=== PATIENT | female | born 1955 | race Caucasian/White ===

== ENCOUNTER 2018-12-09 13:11 | Day surgery (SDC) | payer BC ==
[~2018-12-09 13:11] MED LIST: Lactated Ringers 1,000 ML IV SCH
--- NOTE | 2018-12-09 13:46 | PCM.PREANE ---
Preanesthetic Assessment - Anesthesia/Transfusion/Family Hx Anesthesia History: Prior Anesthesia Without Reaction Family History of Anesthesia Reaction: No Transfusion History: Prior Transfusion Without Reaction Intubation History: Unknown - Review of Systems General: No Symptoms Pulmonary: No Symptoms Cardiovascular: No Symptoms Gastrointestinal: Other (belching, bloating, pressure at the bottom of the sternum) Neurological: No Symptoms Other: Reports: None - Physical Assessment Height: 1.68 m Weight: 70.307 kg ASA Class: 2 Mental Status: Alert & Oriented x3 Airway Class: Mallampati = 2 Dentition: Reports: Normal Dentition (tiny chip front upper incisor) Thyro-Mental Finger Breadths: 3 Mouth Opening Finger Breadths: 2 ROM/Head Extension: Full Lungs: Clear to Auscultation, Normal Respiratory Effort Cardiovascular: Regular Rate, Regular Rhythm - Allergies Allergies/Adverse Reactions: Allergies Allergy/AdvReac Type Severity Reaction Status Date / Time rogelio Allergy sinus Verified 12/04/18 09:36 congestion - Blood Blood Available: No - Anesthesia Plan Pre-Op Medication Ordered: None - Acknowledgements Anesthesia Type Planned: MAC Pt an Appropriate Candidate for the Planned Anesthesia: Yes Alternatives and Risks of Anesthesia Discussed w Pt/Guardian: Yes Pt/Guardian Understands and Agrees with Anesthesia Plan: Yes PreAnesthesia Questionnaire Cardiovascular History: Reports: Heart Murmur, High Cholesterol, Hypertension Other Cardiovascular History: "slight murmur" Respiratory History: Reports: Other (See Below) Other Respiratory History: "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" Gastrointestinal History: Reports: Other (See Below) Other Gastrointestinal History: intermittent epigastric pain and bloating Genitourinary History: Reports: None 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: Hematologic History: Reports: Blood Transfusion(s) - Past Surgical History Head Surgeries/Procedures: Reports: None GI Surgical History: Reports: Colonoscopy (2013) Female Surgical History: Reports: Section, Hysterectomy, Salpingo- Oophorectomy - SUBSTANCE USE Smoking Status *Q: Never Smoker Recreational Drug Use History: No - HOME MEDS Home Medications: Home Meds Albuterol [Ventolin HFA] 1 - 2 puff INH ASDIRECTED PRN 12/04/18 [History] Aspirin [Adult Aspirin] 81 mg PO DAILY 12/04/18 [History] Lisinopril 10 mg PO DAILY 12/04/18 [History] Rosuvastatin Calcium 40 mg PO ASDIRECTED 12/04/18 [History] Zolpidem Tartrate 10 mg PO BEDTIME PRN 12/04/18 [History] hydroCHLOROthiazide [Hydrochlorothiazide] 25 mg PO DAILY 12/04/18 [History] - CURRENT (IN HOUSE) MEDS Current Meds: Current Medications Lactated Ringer's (Ringers, Lactated) 1,000 mls @ 125 mls/hr IV ASDIRECTED BRENDA
[2018-12-09] MEDS ORDERED: Lidocaine 2% 5 ML SDV ONE (14:03)
[2018-12-09] MEDS ORDERED: Propofol 200 MG/20 ML SDV ONE (14:04)
[2018-12-09] MEDS ORDERED: fentaNYL 100 MCG/2 ML SDV ONE (14:04)
--- NOTE | 2018-12-09 14:51 | PCM.OPNOTE ---
- General Post-Op/Procedure Note Date of Surgery/Procedure: 12/09/18 Operative Procedure(s): Esophagogastroduodenoscopy with gastric and esophageal biopsies Pre Op Diagnosis: Progressive dysphagia. Epigastric pain with abdominal bloating. Post-Op Diagnosis: Acute gastritis with superficial ulcerations. Hiatal hernia with esophagitis. Anesthesia Technique: MAC (ASA II) Primary Surgeon: Woodrow Mcdonald Condition: Good Free Text/Narrative:: DICTATION [id number] CPT CODE [id number]
--- NOTE | 2018-12-09 14:52 | PCM48HPAN ---
Post Anesthesia Note - EVALUATION WITHIN 48HRS OF ANESTHETIC Vital Signs in Normal Range: Yes Patient Participated in Evaluation: Yes Respiratory Function Stable: Yes Airway Patent: Yes Cardiovascular Function Stable: Yes Hydration Status Stable: Yes Pain Control Satisfactory: Yes Nausea and Vomiting Control Satisfactory: Yes Mental Status Recovered: Yes Resp Rate: 20 - COMMENTS/OBSERVATIONS Free Text/Narrative:: no anesthesia problems
[2018-12-09] MEDS ORDERED: Lactated Ringers 1,000 ML IV SCH (15:00)
--- NOTE | 2018-12-10 08:50 | OR ---
SURGEON: Woodrow Mcdonald M.D. DATE OF PROCEDURE: 12/09/2018 OPERATIONS PERFORMED: Esophagogastroduodenoscopy with gastric and esophageal biopsies. ANESTHESIA: MAC. ASA CLASSIFICATION: II. PREOPERATIVE DIAGNOSES: 1. Progressive dysphagia. 2. Epigastric pain with abdominal bloating. POSTOPERATIVE DIAGNOSES: 1. Acute gastritis with superficial ulcerations. 2. Hiatal hernia with esophagitis. DESCRIPTION OF PROCEDURE: The patient was taken to the endoscopy room and positioned on the endoscopy table in the supine position. Time-out was called for appropriate identification of the patient and procedure. Monitored anesthesia care was provided. The bite block was placed between the patient's teeth. The gastroscope was inserted through the bite block into the oropharynx and advanced without difficulty through the esophagus and stomach into the duodenum. Examination was now carried out in a retrograde fashion. Duodenum shows no acute inflammatory changes or ulcerations. Stomach does show a rather acute gastritis with what appeared to be superficial ulcerations. Antral biopsies were obtained to look for the presence of Helicobacter pylori. There was no acute large gastric ulceration or ulcer crater. The gastroscope was retroflexed to visualize the proximal stomach. The patient does have a hiatal hernia. In addition, the distal esophagus does show acute inflammatory changes and suggestion of columnarization of the esophageal mucosa. The esophagus itself demonstrates good contractility. No mid or proximal lesions were identified. The vocal cords were very briefly visualized and noted to move symmetrically. The oropharynx was thoroughly suctioned out prior to removing the scope. The patient tolerated the procedure well and was taken to recovery room in stable condition. CELENA / KYLE /[id number]
== END 2018-12-09 15:26 | disposition home or self-care (01) ==
LOC: MW.SDS 13:11
PROVIDERS: ATTEND Surgery
DX: K29.50 Unspecified chronic gastritis without bleeding (principal); K20.9 Esophagitis, unspecified; K44.9 Diaphragmatic hernia without obstruction or gangrene; K31.7 Polyp of stomach and duodenum; I10 Essential (primary) hypertension; E78.00 Pure hypercholesterolemia, unspecified; Z87.891 Personal history of nicotine dependence; Z79.82 Long term (current) use of aspirin; Z79.899 Other long term (current) drug therapy
CPT/HCPCS: 43239; J2704; J7120; J2001; J3010

== ENCOUNTER 2019-11-21 12:13 | Observation (INO) | payer BC ==
[2019-11-21] MEDS ORDERED: Labetalol 100 MG/20 ML MDV IVPUSH ONE (12:30)
[2019-11-21] MEDS ORDERED: hydrALAZINE 20 MG/ML SDV IVPUSH ONE (12:30)
[2019-11-21 13:00] LABS: BLOOD UREA NITROGEN,BUN 10 mg/dL (7.0-18.0); CARBON DIOXIDE,CO2 30.7 mmol/L (21.0-32.0); CHLORIDE,CL 97 mmol/L (98-107); GLUCOSE RANDOM 183 mg/dL (74-106); POTASSIUM,K 3.5 mmol/L (3.5-5.1); SODIUM,NA 136 mmol/L (136-145)
--- NOTE | 2019-11-21 13:41 | CR ---
Chest: Portable view of the chest was obtained. Comparison: No previous chest x-ray. Heart size and mediastinum are normal. Lungs are clear. Bony structures are grossly intact. Impression: 1. Nothing acute is appreciated on portable chest x-ray. Diagnostic code #1 This report was dictated in [place] Standard Time
[2019-11-21] MEDS ORDERED: Nitroglycerin 0.4 MG Tab.SL SL ONE (15:28)
--- NOTE | 2019-11-21 15:37 | EDM.PDOC ---
ED HPI GENERAL MEDICAL PROBLEM - General Chief Complaint: Chest Pain Stated Complaint: COUGH,CHEST TIGHTNESS Time Seen by Provider: 11/21/19 13:28 Source of Information: Reports: Patient History Limitations: Reports: No Limitations - History of Present Illness INITIAL COMMENTS - FREE TEXT/NARRATIVE: This 63 year old female is admitted to the ED with a chief complaint of chest pressure shortly after eating breakfast. She also complained of pain into her left arm with mild SOB with nausea. She states that as of 3:25PM the chest pressure feels better but is still there. She has a history of hypertension and high lipids. Both her mother and father had heart disease. Onset: Today Location: Reports: Chest Quality: Reports: Pressure (in center of chest) Severity: Moderate Associated Symptoms: Reports: Chest Pain, Diaphoresis, Nausea/Vomiting, Shortness of Breath chest Pain Score (Numeric/FACES): 3 - Related Data Allergies Allergy/AdvReac Type Severity Reaction Status Date / Time [place] Allergy sinus Verified 12/04/18 09:36 congestion Home Meds: Home Meds Albuterol [Ventolin HFA] 1 - 2 puff INH ASDIRECTED PRN 12/04/18 [History] Aspirin [Adult Aspirin] 81 mg PO DAILY 12/04/18 [History] Lisinopril 10 mg PO DAILY 12/04/18 [History] Rosuvastatin Calcium 40 mg PO ASDIRECTED 12/04/18 [History] Zolpidem Tartrate 10 mg PO BEDTIME PRN 12/04/18 [History] hydroCHLOROthiazide [Hydrochlorothiazide] 25 mg PO DAILY 12/04/18 [History] Sucralfate 1 gm PO QID 30 Days #120 tablet 12/09/18 [Rx] Past Medical History Cardiovascular History: Reports: Heart Murmur, High Cholesterol, Hypertension Other Cardiovascular History: "slight murmur" Respiratory History: Reports: Other (See Below) Other Respiratory History: "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" Gastrointestinal History: Reports: Other (See Below) Other Gastrointestinal History: intermittent epigastric pain and bloating Genitourinary History: Reports: None 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 Denies: Pleuritic Chest Pain , Sputum Cardiovascular: Reports: Chest Pain, Palpitations. Denies: Dyspnea on Exertion , Lightheadedness, Orthopnea Endocrine: Reports: No Symptoms GI/Abdominal: Reports: Nausea : Reports: No Symptoms Musculoskeletal: Reports: No Symptoms Skin: Reports: No Symptoms Neurological: Reports: No Symptoms Psychiatric: Reports: No Symptoms ED EXAM, GENERAL - Physical Exam Exam: See Below Exam Limited By: No Limitations General Appearance: Alert, WD/WN, No Apparent Distress Eye Exam: Bilateral Eye: EOMI, Normal Fundi, Normal Inspection, PERRL Ears: Normal External Exam, Normal Canal, Hearing Grossly Normal, Normal TMs Ear Exam: Bilateral Ear: Auricle Normal, Canal Normal, TM normal Nose: Normal Inspection, Normal Mucosa, No Blood Throat/Mouth: Normal Inspection, Normal Lips, Normal Teeth, Normal Gums, Normal Oropharynx, Normal Voice, No Airway Compromise Head: Atraumatic, Normocephalic Neck: Normal Inspection, Supple, Non-Tender, Full Range of Motion. No: Carotid Bruit, Thyromegaly Respiratory/Chest: No Respiratory Distress, Lungs Clear, Normal Breath Sounds. No: Crackles, Rales, Rhonchi, Wheezing Cardiovascular: No JVD, No Murmur, Tachycardia (rate of 131 beats per minute). No: No Edema, No Gallop Peripheral Pulses: 3+: Carotid (L), Carotid (R), Femoral (L), Femoral (R), Dorsalis Pedis (L), Dorsalis Pedis (R) GI/Abdominal: Normal Bowel Sounds, Soft, Non-Tender, No Organomegaly, No Distention, No Abnormal Bruit, No Mass Back Exam: Normal Inspection, Full Range of Motion. No: CVA Tenderness (L), CVA Tenderness (R) Extremities: Normal Inspection Neurological: Alert, Oriented, CN II-XII Intact, Normal Cognition, Normal Gait, Normal Reflexes, No Motor/Sensory Deficits Psychiatric: Normal Affect, Normal Mood Skin Exam: Warm, Dry, Intact, Normal Color, No Rash Course - Vital Signs Text/Narrative:: I discussed this case with Dr. Mays at 3:30PM. I also discussed this with the patient. She will be admitted to Obs/Tele. Last Recorded V/S: Last Vital Signs Temp 98.1 F 11/21/19 12:24 Pulse 104 H 11/21/19 13:53 Resp 16 11/21/19 13:53 BP 183/87 H 11/21/19 13:53 Pulse Ox 94 L 11/21/19 13:53 - Orders/Labs/Meds Orders: Active Orders 24 hr Category Date Time Status EKG Documentation Completion [RC] STAT Care 11/21/19 12:29 Active Labs: Laboratory Tests 11/21/19 11/21/19 11/21/19 Range/Units 12: 12:20 12:20 WBC 7.65 (4.0-11.0) K/uL RBC 4.60 (4.30-5.90) M/uL Hgb 16.0 (12.0-16.0) g/dL Hct 44.8 (36.0-46.0) % MCV 97.4 (80.0-98.0) fL MCH 34.8 H (27.0-32.0) pg MCHC 35.7 (31.0-37.0) g/dL RDW Std Deviation 42.4 (28.0-62.0) fl RDW Coeff of Oly 12 (11.0-15.0) % Plt Count 289 (150-400) K/uL MPV 9.60 (7.40-12.00) fL Neut % (Auto) 62.5 (48.0-80.0) % Lymph % (Auto) 24.8 (16.0-40.0) % Evans % (Auto) 11.0 (0.0-15.0) % Eos % (Auto) 1.2 (0.0-7.0) % Baso % (Auto) 0.5 (0.0-1.5) % Neut # (Auto) 4.8 (1.4-5.7) K/uL Lymph # (Auto) 1.9 (0.6-2.4) K/uL Evans # (Auto) 0.8 (0.0-0.8) K/uL Eos # (Auto) 0.1 (0.0-0.7) K/uL Baso # (Auto) 0.0 (0.0-0.1) K/uL Sodium 136 (136-145) mmol/L Potassium 3.5 (3.5-5.1) mmol/L Chloride 97 L (98-107) mmol/L Carbon Dioxide 30.7 (21.0-32.0) mmol/L BUN 10 (7.0-18.0) mg/dL Creatinine 0.7 (0.6-1.0) mg/dL Est Cr Clr Drug Dosing 77.01 mL/min Estimated GFR (MDRD) > 60.0 ml/min Glucose 183 H (74-106) mg/dL Calcium 9.2 (8.5-10.1) mg/dL Magnesium 1.9 (1.8-2.4) mg/dL Total Bilirubin 0.6 (0.2-1.0) mg/dL AST 112 H (15-37) IU/L ALT 114 H (14-63) IU/L Alkaline Phosphatase 94 (46-116) U/L Troponin I < 0.050 (0.000-0.056) ng/mL B-Natriuretic Peptide 5 (<100) PG/ML Total Protein 8.8 H (6.4-8.2) g/dL Albumin 4.1 (3.4-5.0) g/dL Globulin 4.7 H (2.6-4.0) g/dL Albumin/Globulin Ratio 0.9 (0.9-1.6) 11/21/19 Range/Units 14:34 WBC (4.0-11.0) K/uL RBC (4.30-5.90) M/uL Hgb (12.0-16.0) g/dL Hct (36.0-46.0) % MCV (80.0-98.0) fL MCH (27.0-32.0) pg MCHC (31.0-37.0) g/dL RDW Std Deviation (28.0-62.0) fl RDW Coeff of Oly (11.0-15.0) % Plt Count (150-400) K/uL MPV (7.40-12.00) fL Neut % (Auto) (48.0-80.0) % Lymph % (Auto) (16.0-40.0) % Evans % (Auto) (0.0-15.0) % Eos % (Auto) (0.0-7.0) % Baso % (Auto) (0.0-1.5) % Neut # (Auto) (1.4-5.7) K/uL Lymph # (Auto) (0.6-2.4) K/uL Evans # (Auto) (0.0-0.8) K/uL Eos # (Auto) (0.0-0.7) K/uL Baso # (Auto) (0.0-0.1) K/uL Sodium (136-145) mmol/L Potassium (3.5-5.1) mmol/L Chloride (98-107) mmol/L Carbon Dioxide (21.0-32.0) mmol/L BUN (7.0-18.0) mg/dL Creatinine (0.6-1.0) mg/dL Est Cr Clr Drug Dosing mL/min Estimated GFR (MDRD) ml/min Glucose (74-106) mg/dL Calcium (8.5-10.1) mg/dL Magnesium (1.8-2.4) mg/dL Total Bilirubin (0.2-1.0) mg/dL AST (15-37) IU/L ALT (14-63) IU/L Alkaline Phosphatase (46-116) U/L Troponin I < 0.050 (0.000-0.056) ng/mL B-Natriuretic Peptide (<100) PG/ML Total Protein (6.4-8.2) g/dL Albumin (3.4-5.0) g/dL Globulin (2.6-4.0) g/dL Albumin/Globulin Ratio (0.9-1.6) Meds: Medications Discontinued Medications Generic Name Dose Route Start Last Admin Trade Name Freq PRN Reason Stop Dose Admin Hydralazine HCl 10 mg 11/21/19 12:30 11/21/19 12:37 Apresoline IVPUSH 11/21/19 12:31 10 mg ONETIME ONE Administration Labetalol HCl 20 mg 11/21/19 12:30 11/21/19 12:37 Normodyne IVPUSH 11/21/19 12:31 20 mg ONETIME ONE Administration Protocol Departure - Departure Time of Disposition: 15:50 Disposition: Refer to Observation Condition: Fair Clinical Impression: Hypertension, malignant Chest pain due to myocardial ischemia Qualifiers: Ischemic chest pain type: stable angina pectoris Qualified Code(s): I20.8 - Other forms of angina pectoris Sepsis Event Note - Evaluation Sepsis Screening Result: No Definite Risk - Focused Exam Vital Signs: Vital Signs Temp Pulse Resp BP Pulse Ox 11/21/19 13:53 104 H 16 183/87 H 94 L 11/21/19 13:09 106 H 16 152/85 H 97 11/21/19 12:41 121 H 16 187/98 H 97 11/21/19 12:24 98.1 F 141 H 20 219/123 H 96 Date Exam was Performed: 11/21/19 Time Exam was Performed: 15:28 - My Orders Last 24 Hours: My Active Orders 11/21/19 12:29 EKG Documentation Completion [RC] STAT - Assessment/Plan Last 24 Hours: My Active Orders 11/21/19 12:29 EKG Documentation Completion [RC] STAT
[2019-11-21] MEDS ORDERED: Acetaminophen 500 MG Tab PO ONE (15:39)
[2019-11-21] MEDS ORDERED: Acetaminophen 325 MG Tab PO PRN (16:41)
[2019-11-21] MEDS ORDERED: Albuterol/Ipratropium 3.0-0.5 MG/3 ML Neb Soln NEB PRN (16:41)
[2019-11-21] MEDS ORDERED: Labetalol 100 MG/20 ML MDV IVPUSH PRN (16:57)
[2019-11-21] MEDS ORDERED: Hydrochlorothiazide 25 MG Tab PO SCH (17:00)
[2019-11-21] MEDS: Sucralfate 1 GM Tab PO SCH (17:22)
[2019-11-21] MEDS: Lisinopril 10 MG Tab PO SCH (17:22)
--- NOTE | 2019-11-21 19:48 | PCM.HP.2 ---
H&P History of Present Illness - General Date of Service: 11/21/19 Admit Problem/Dx: Admission Diagnosis/Problem Admission Diagnosis/Problem Hypertensive urgency - History of Present Illness Initial Comments - Free Text/Narative: This 63 year old female with PMH of HTN, HLD who comes in for evaluation of chest pressure that started earlier this AM after she had her breakfast and was lying down. Patient also c/o pain in her left arm, mild SOB associated with some Nausea, and dizziness. When she got to the ER her chest pressure had mostly resolved. Family history is significant cardiac disease. In the ER patient was found to have elevated BP in ER with high HR. Patient received labetalol and hydrazine for BP control. REINA improved. EKG didn't show any acute ST,T wave changes, Troponin 1st 2 sets in ER were negative. Patient does have elevated LFTs, patient is being admitted for management of Hypertensive urgency. States she has been feeling flu like symptoms last 1 week. Patient states that her BP has been uncontrolled last few weeks (SBP>170), and hasbeen trying to manage at home with her oral antihypertensive meds. Today she was at her daughter place so family insisted to take her to ER. chest Pain Score (Numeric/FACES): 3 - Related Data Allergies/Adverse Reactions: Allergies Allergy/AdvReac Type Severity Reaction Status Date / Time [email or web address] Allergy sinus Verified 11/21/19 16:41 congestion Home Medications: Home Meds Albuterol [Ventolin HFA] 1 - 2 puff INH ASDIRECTED PRN 12/04/18 [History] Aspirin [Adult Aspirin] 81 mg PO DAILY 12/04/18 [History] Lisinopril 20 mg PO DAILY 12/04/18 [History] Rosuvastatin Calcium 40 mg PO ASDIRECTED 12/04/18 [History] hydroCHLOROthiazide [Hydrochlorothiazide] 25 mg PO BEDTIME 12/04/18 [History] Sucralfate 1 gm PO QID 30 Days #120 tablet 12/09/18 [Rx] Zolpidem Tartrate [Ambien] 10 mg PO BEDTIME 11/21/19 [History] lisinopriL [Prinivil] 20 mg PO DAILY 30 Days #30 tablet 11/22/19 [Rx] Past Medical History HEENT History: Reports: None Cardiovascular History: Reports: Heart Murmur, High Cholesterol, Hypertension Other Cardiovascular History: "slight murmur" Respiratory History: Reports: Other (See Below) Other Respiratory History: "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" Gastrointestinal History: Reports: Other (See Below) Other Gastrointestinal History: intermittent epigastric pain and bloating Genitourinary History: Reports: None [employer] History: Reports: Hematologic History: Reports: Blood Transfusion(s) - Infectious Disease History Infectious Disease History: Reports: Chicken Pox - Past Surgical History Head Surgeries/Procedures: Reports: None GI Surgical History: Reports: Colonoscopy Female Surgical History: Reports: Section, Hysterectomy, Salpingo- Oophorectomy Social & Family History - Family History Cardiac: Reports: CAD, VA, Stent OBGYN: Reports: Neurological: Reports: CVA, TIA Psychiatric: Reports: Depression - Tobacco Use Smoking Status *Q: Never Smoker Second Hand Smoke Exposure: No - Caffeine Use Caffeine Use: Reports: Tea - Recreational Drug Use Recreational Drug Use: No H&P Review of Systems - Review of Systems: Review Of Systems: See Below General: Denies: Fever, Chills, Malaise Pulmonary: Denies: Shortness of Breath, Wheezing, Pleuritic Chest Pain, Cough Cardiovascular: Reports: Chest Pain. Denies: Palpitations, Dyspnea on Exertion , Orthopnea Gastrointestinal: Reports: Nausea. Denies: Abdominal Pain, Anorexia, Bloody Stool, Decreased Appetite Genitourinary: Denies: Frequency, Burning Musculoskeletal: Reports: Arm Pain. Denies: Neck Pain, Shoulder Pain, Back Pain , Hand Pain, Leg Pain Skin: Denies: Cyanosis, Jaundice, Mottled Psychiatric: Reports: Anxiety. Denies: Confusion Exam - Exam Exam: See Below - Vital Signs Vital Signs: Last Vital Signs Temp 36.8 C 11/21/19 19:15 Pulse 106 H 11/21/19 19:15 Resp 20 11/21/19 19:15 BP 179/87 H 11/21/19 19:15 Pulse Ox 96 11/21/19 19:15 Weight: 72.167 kg - Exam General: Alert, Oriented Neck: Supple, Trachea Midline Lungs: Clear to Auscultation, Normal Respiratory Effort Cardiovascular: Regular Rate, Normal S1, Normal S2, Tachycardia GI/Abdominal Exam: Normal Bowel Sounds, Soft, Non-Tender - Patient Data Lab Results Last 24 hrs: Laboratory Results - last 24 hr 11/21/19 11/21/19 11/21/19 Range/Units 12:20 12:20 12:20 WBC 7.65 (4.0-11.0) K/uL RBC 4.60 (4.30-5.90) M/uL Hgb 16.0 (12.0-16.0) g/dL Hct 44.8 (36.0-46.0) % MCV 97.4 (80.0-98.0) fL MCH 34.8 H (27.0-32.0) pg MCHC 35.7 (31.0-37.0) g/dL RDW Std Deviation 42.4 (28.0-62.0) fl RDW Coeff of Oly 12 (11.0-15.0) % Plt Count 289 (150-400) K/uL MPV 9.60 (7.40-12.00) fL Neut % (Auto) 62.5 (48.0-80.0) % Lymph % (Auto) 24.8 (16.0-40.0) % Becker % (Auto) 11.0 (0.0-15.0) % Eos % (Auto) 1.2 (0.0-7.0) % Baso % (Auto) 0.5 (0.0-1.5) % Neut # (Auto) 4.8 (1.4-5.7) K/uL Lymph # (Auto) 1.9 (0.6-2.4) K/uL Becker # (Auto) 0.8 (0.0-0.8) K/uL Eos # (Auto) 0.1 (0.0-0.7) K/uL Baso # (Auto) 0.0 (0.0-0.1) K/uL Sodium 136 (136-145) mmol/L Potassium 3.5 (3.5-5.1) mmol/L Chloride 97 L (98-107) mmol/L Carbon Dioxide 30.7 (21.0-32.0) mmol/L BUN 10 (7.0-18.0) mg/dL Creatinine 0.7 (0.6-1.0) mg/dL Est Cr Clr Drug Dosing 77.01 mL/min Estimated GFR (MDRD) > 60.0 ml/min Glucose 183 H (74-106) mg/dL Calcium 9.2 (8.5-10.1) mg/dL Magnesium 1.9 (1.8-2.4) mg/dL Total Bilirubin 0.6 (0.2-1.0) mg/dL AST 112 H (15-37) IU/L ALT 114 H (14-63) IU/L Alkaline Phosphatase 94 (46-116) U/L Troponin I < 0.050 (0.000-0.056) ng/mL B-Natriuretic Peptide 5 (<100) PG/ML Total Protein 8.8 H (6.4-8.2) g/dL Albumin 4.1 (3.4-5.0) g/dL Globulin 4.7 H (2.6-4.0) g/dL Albumin/Globulin Ratio 0.9 (0.9-1.6) 11/21/19 11/21/19 Range/Units 14:34 17:35 WBC (4.0-11.0) K/uL RBC (4.30-5.90) M/uL Hgb (12.0-16.0) g/dL Hct (36.0-46.0) % MCV (80.0-98.0) fL MCH (27.0-32.0) pg MCHC (31.0-37.0) g/dL RDW Std Deviation (28.0-62.0) fl RDW Coeff of Oly (11.0-15.0) % Plt Count (150-400) K/uL MPV (7.40-12.00) fL Neut % (Auto) (48.0-80.0) % Lymph % (Auto) (16.0-40.0) % Becker % (Auto) (0.0-15.0) % Eos % (Auto) (0.0-7.0) % Baso % (Auto) (0.0-1.5) % Neut # (Auto) (1.4-5.7) K/uL Lymph # (Auto) (0.6-2.4) K/uL Becker # (Auto) (0.0-0.8) K/uL Eos # (Auto) (0.0-0.7) K/uL Baso # (Auto) (0.0-0.1) K/uL Sodium (136-145) mmol/L Potassium (3.5-5.1) mmol/L Chloride (98-107) mmol/L Carbon Dioxide (21.0-32.0) mmol/L BUN (7.0-18.0) mg/dL Creatinine (0.6-1.0) mg/dL Est Cr Clr Drug Dosing mL/min Estimated GFR (MDRD) ml/min Glucose (74-106) mg/dL Calcium (8.5-10.1) mg/dL Magnesium (1.8-2.4) mg/dL Total Bilirubin (0.2-1.0) mg/dL AST (15-37) IU/L ALT (14-63) IU/L Alkaline Phosphatase (46-116) U/L Troponin I < 0.050 < 0.050 (0.000-0.056) ng/mL B-Natriuretic Peptide (<100) PG/ML Total Protein (6.4-8.2) g/dL Albumin (3.4-5.0) g/dL Globulin (2.6-4.0) g/dL Albumin/Globulin Ratio (0.9-1.6) Result Diagrams: 11/22/19 05:55 11/22/19 05:55 Sepsis Event Note - Evaluation Sepsis Screening Result: No Definite Risk - Focused Exam Vital Signs: Vital Signs Temp Pulse Resp BP BP Pulse Ox 11/21/19 19:15 36.8 C 106 H 20 179/87 H 96 11/21/19 17:22 170/87 H 11/21/19 16:41 36.2 C 106 H 16 170/87 H 97 11/21/19 16:09 104 H 16 144/97 H 94 L 11/21/19 15:44 116 H 16 144/97 H 96 11/21/19 15:37 167/94 H 11/21/19 13:53 104 H 16 183/87 H 94 L 11/21/19 13:09 106 H 16 152/85 H 97 11/21/19 12:41 121 H 16 187/98 H 97 11/21/19 12:24 36.7 C 141 H 20 219/123 H 96 Date Exam was Performed: 11/22/19 Time Exam was Performed: 20:56 - Problem List (1) Hypertensive urgency SNOMED Code(s): 909390062 ICD Code: I16.0 - HYPERTENSIVE URGENCY Status: Acute (2) HLD (hyperlipidemia) SNOMED Code(s): 71124396 ICD Code: E78.5 - HYPERLIPIDEMIA, UNSPECIFIED Status: Acute (3) Family history of heart disease SNOMED Code(s): 358790254 ICD Code: Z82.49 - FAMILY HX OF ISCHEM HEART DIS AND OTH DIS OF THE CIRC SYS Status: Acute Problem List Initiated/Reviewed/Updated: Yes Orders Last 24hrs: Active Orders 24 hr Category Date Time Status Admission Status [Patient Status] [ADT] Stat ADT 11/21/19 15:40 Active Ambulate [RC] ASDIRECTED Care 11/21/19 16:41 Active Antiembolic Devices [RC] PER UNIT ROUTINE Care 11/21/19 16:46 Active Oxygen Therapy [RC] PRN Care 11/21/19 16:41 Active Pulse Oximetry [RC] PRN Care 11/21/19 16:43 Active RT Aerosol Therapy [RC] ASDIRECTED Care 11/21/19 16:46 Active Telemetry Monitoring [Cardiac Monitoring] [RC] . Care 11/21/19 15:50 Active DIRECTED VTE/DVT Education [RC] PER UNIT ROUTINE Care 11/21/19 16:41 Active Vital Signs [RC] Q4H Care 11/21/19 16:41 Active Heart Healthy Diet [DIET] Diet 11/21/19 Dinner Active Albuterol/Ipratropium [DuoNeb 3.0-0.5 MG/3 ML] Med 11/21/19 16:41 Active 3 ml NEB Q4HRRT PRN Aspirin [Halfprin] Med 11/22/19 09:00 Active 81 mg PO DAILY Labetalol [Normodyne] Med 11/21/19 16:57 Active 20 mg IVPUSH Q4H PRN Rosuvastatin Calcium [Rosuvastatin Calcium] Med 11/21/19 17:00 Ordered 40 mg PO ASDIRECTED Sucralfate [Carafate] Med 11/21/19 18:00 Active 1 gm PO QID lisinopriL [Prinivil] Med 11/21/19 17:00 Active 10 mg PO DAILY Sequential Compression Device [OM.PC] Per Unit Routine Oth 11/21/19 16:44 Ordered Medication Orders Albuterol/Ipratropium (Duoneb 3.0-0.5 Mg/3 Ml) 3 ml NEB Q4HRRT PRN PRN Reason: Shortness Of Breath/wheezing Aspirin (Halfprin) 81 mg PO DAILY [facility] Labetalol HCl (Normodyne) 20 mg IVPUSH Q4H PRN; Protocol PRN Reason: Hypertension Last Admin: 11/21/19 19:35 Dose: 20 mg Lisinopril (Prinivil) 10 mg PO DAILY [facility] Last Admin: 11/21/19 17:22 Dose: 10 mg Non-Formulary Medication (Rosuvastatin Calcium [Rosuvastatin Calcium]) 40 mg PO ASDIRECTED [facility] Sucralfate (Carafate) 1 gm PO QID [facility] Last Admin: 11/21/19 17:22 Dose: 1 gm Assessment/Plan Comment:: A/P: 63 y/o F is being admitted for management of uncontrolled HTN, anxiety driven vs non-compliance? troponin 1st 2 sets neagtive, f/u on 3rd set, EKG unremarkable Cont home meds for BP control(med-rec needs to be done in AM) Labetalol 10mg IV Q4 for HTN cont ASA, statin Repeat LFTs in AM, transaminitis could be secondary to uncontrolled HTN Check lipid profile, TSH, HbA1c cont to monitor closely
[2019-11-21] MEDS ORDERED: ALPRAZolam 0.5 MG Tab PO ONE (20:14)
[2019-11-21 20:41] LABS: HEMOGLOBIN A1C 6.4 % (4.5-6.2)
[2019-11-22] MEDS: Sucralfate 1 GM Tab PO SCH ×2 (00:50→06:10)
[2019-11-22 06:48] LABS: BLOOD UREA NITROGEN,BUN 10 mg/dL (7.0-18.0); CARBON DIOXIDE,CO2 28.9 mmol/L (21.0-32.0); CHLORIDE,CL 100 mmol/L (98-107); GLUCOSE RANDOM 133 mg/dL (74-106); POTASSIUM,K 3.5 mmol/L (3.5-5.1); SODIUM,NA 136 mmol/L (136-145)
[2019-11-22] MEDS: Lisinopril 10 MG Tab PO SCH (08:41)
--- NOTE | 2019-11-22 08:54 | PCM.PN ---
- General Info Date of Service: 11/22/19 Subjective Update: The patient is a 63 year old female admitted for chest pain and HTN emergency. Patient still having intermittent "chest episodes" not really pain but doesn't feel right. BP still elevated 160s/80s. Required prn labetelol last night. Denies shortness of breath or abdominal pain. Eating, drinking, going to the bathroom without issue. Reports she just feels wiped out. - Review of Systems General: Reports: No Symptoms HEENT: Reports: No Symptoms Pulmonary: Reports: No Symptoms Cardiovascular: Reports: Chest Pain Gastrointestinal: Reports: No Symptoms Genitourinary: Reports: No Symptoms Musculoskeletal: Reports: No Symptoms Skin: Reports: No Symptoms Neurological: Reports: No Symptoms Psychiatric: Reports: No Symptoms - Patient Data Vitals - Most Recent: Last Vital Signs Temp 97.7 F 11/22/19 07:00 Pulse 90 11/22/19 07:00 Resp 20 11/22/19 07:00 BP 169/93 H 11/22/19 07:00 Pulse Ox 96 11/22/19 07:00 Weight - Most Recent: 72.167 kg I&O - Last 24 Hours: Intake & Output 11/21/19 11/22/19 11/22/19 22:59 06:59 14:59 Intake Total 500 Output Total 650 Balance -150 Lab Results Last 24 Hours: Laboratory Results - last 24 hr 11/21/19 11/21/19 11/21/19 Range/Units 12:20 12:20 12:20 WBC 7.65 (4.0-11.0) K/uL RBC 4.60 (4.30-5.90) M/uL Hgb 16.0 (12.0-16.0) g/dL Hct 44.8 (36.0-46.0) % MCV 97.4 (80.0-98.0) fL MCH 34.8 H (27.0-32.0) pg MCHC 35.7 (31.0-37.0) g/dL RDW Std Deviation 42.4 (28.0-62.0) fl RDW Coeff of Oly 12 (11.0-15.0) % Plt Count 289 (150-400) K/uL MPV 9.60 (7.40-12.00) fL Neut % (Auto) 62.5 (48.0-80.0) % Lymph % (Auto) 24.8 (16.0-40.0) % Pitt % (Auto) 11.0 (0.0-15.0) % Eos % (Auto) 1.2 (0.0-7.0) % Baso % (Auto) 0.5 (0.0-1.5) % Neut # (Auto) 4.8 (1.4-5.7) K/uL Lymph # (Auto) 1.9 (0.6-2.4) K/uL Pitt # (Auto) 0.8 (0.0-0.8) K/uL Eos # (Auto) 0.1 (0.0-0.7) K/uL Baso # (Auto) 0.0 (0.0-0.1) K/uL Nucleated RBC % /100WBC Nucleated RBCs # K/uL Sodium 136 (136-145) mmol/L Potassium 3.5 (3.5-5.1) mmol/L Chloride 97 L (98-107) mmol/L Carbon Dioxide 30.7 (21.0-32.0) mmol/L BUN 10 (7.0-18.0) mg/dL Creatinine 0.7 (0.6-1.0) mg/dL Est Cr Clr Drug Dosing 77.01 mL/min Estimated GFR (MDRD) > 60.0 ml/min Glucose 183 H (74-106) mg/dL Hemoglobin A1c (4.5-6.2) % Calcium 9.2 (8.5-10.1) mg/dL Phosphorus (2.6-4.7) mg/dL Magnesium 1.9 (1.8-2.4) mg/dL Total Bilirubin 0.6 (0.2-1.0) mg/dL AST 112 H (15-37) IU/L ALT 114 H (14-63) IU/L Alkaline Phosphatase 94 (46-116) U/L Troponin I < 0.050 (0.000-0.056) ng/mL B-Natriuretic Peptide 5 (<100) PG/ML Total Protein 8.8 H (6.4-8.2) g/dL Albumin 4.1 (3.4-5.0) g/dL Globulin 4.7 H (2.6-4.0) g/dL Albumin/Globulin Ratio 0.9 (0.9-1.6) TSH 3rd Generation (0.36-3.74) uIU/mL 11/21/19 11/21/19 11/21/19 Range/Units 14:34 14:34 17:35 WBC (4.0-11.0) K/uL RBC (4.30-5.90) M/uL Hgb (12.0-16.0) g/dL Hct (36.0-46.0) % MCV (80.0-98.0) fL MCH (27.0-32.0) pg MCHC (31.0-37.0) g/dL RDW Std Deviation (28.0-62.0) fl RDW Coeff of Oly (11.0-15.0) % Plt Count (150-400) K/uL MPV (7.40-12.00) fL Neut % (Auto) (48.0-80.0) % Lymph % (Auto) (16.0-40.0) % Pitt % (Auto) (0.0-15.0) % Eos % (Auto) (0.0-7.0) % Baso % (Auto) (0.0-1.5) % Neut # (Auto) (1.4-5.7) K/uL Lymph # (Auto) (0.6-2.4) K/uL Pitt # (Auto) (0.0-0.8) K/uL Eos # (Auto) (0.0-0.7) K/uL Baso # (Auto) (0.0-0.1) K/uL Nucleated RBC % /100WBC Nucleated RBCs # K/uL Sodium (136-145) mmol/L Potassium (3.5-5.1) mmol/L Chloride (98-107) mmol/L Carbon Dioxide (21.0-32.0) mmol/L BUN (7.0-18.0) mg/dL Creatinine (0.6-1.0) mg/dL Est Cr Clr Drug Dosing mL/min Estimated GFR (MDRD) ml/min Glucose (74-106) mg/dL Hemoglobin A1c 6.4 H (4.5-6.2) % Calcium (8.5-10.1) mg/dL Phosphorus (2.6-4.7) mg/dL Magnesium (1.8-2.4) mg/dL Total Bilirubin (0.2-1.0) mg/dL AST (15-37) IU/L ALT (14-63) IU/L Alkaline Phosphatase (46-116) U/L Troponin I < 0.050 < 0.050 (0.000-0.056) ng/mL B-Natriuretic Peptide (<100) PG/ML Total Protein (6.4-8.2) g/dL Albumin (3.4-5.0) g/dL Globulin (2.6-4.0) g/dL Albumin/Globulin Ratio (0.9-1.6) TSH 3rd Generation (0.36-3.74) uIU/mL 11/21/19 11/22/19 11/22/19 Range/Units 17:35 05:55 05:55 WBC 8.35 (4.0-11.0) K/uL RBC 4.12 L (4.30-5.90) M/uL Hgb 13.9 (12.0-16.0) g/dL Hct 41.0 (36.0-46.0) % MCV 99.5 H (80.0-98.0) fL MCH 33.7 H (27.0-32.0) pg MCHC 33.9 (31.0-37.0) g/dL RDW Std Deviation 47.4 (28.0-62.0) fl RDW Coeff of Oly 13 (11.0-15.0) % Plt Count 249 (150-400) K/uL MPV 9.70 (7.40-12.00) fL Neut % (Auto) 65.2 (48.0-80.0) % Lymph % (Auto) 20.5 (16.0-40.0) % Pitt % (Auto) 12.1 (0.0-15.0) % Eos % (Auto) 1.6 (0.0-7.0) % Baso % (Auto) 0.6 (0.0-1.5) % Neut # (Auto) 5.5 (1.4-5.7) K/uL Lymph # (Auto) 1.7 (0.6-2.4) K/uL Pitt # (Auto) 1.0 H (0.0-0.8) K/uL Eos # (Auto) 0.1 (0.0-0.7) K/uL Baso # (Auto) 0.1 (0.0-0.1) K/uL Nucleated RBC % 0.0 /100WBC Nucleated RBCs # 0 K/uL Sodium 136 (136-145) mmol/L Potassium 3.5 (3.5-5.1) mmol/L Chloride 100 (98-107) mmol/L Carbon Dioxide 28.9 (21.0-32.0) mmol/L BUN 10 (7.0-18.0) mg/dL Creatinine 0.7 (0.6-1.0) mg/dL Est Cr Clr Drug Dosing 77.01 mL/min Estimated GFR (MDRD) > 60.0 ml/min Glucose 133 H (74-106) mg/dL Hemoglobin A1c (4.5-6.2) % Calcium 8.7 (8.5-10.1) mg/dL Phosphorus 4.6 (2.6-4.7) mg/dL Magnesium 1.8 (1.8-2.4) mg/dL Total Bilirubin 1.2 H (0.2-1.0) mg/dL AST 55 H (15-37) IU/L ALT 79 H (14-63) IU/L Alkaline Phosphatase 74 (46-116) U/L Troponin I (0.000-0.056) ng/mL B-Natriuretic Peptide (<100) PG/ML Total Protein 7.1 (6.4-8.2) g/dL Albumin 3.4 (3.4-5.0) g/dL Globulin 3.7 (2.6-4.0) g/dL Albumin/Globulin Ratio 0.9 (0.9-1.6) TSH 3rd Generation 0.86 (0.36-3.74) uIU/mL Med Orders - Current: Current Medications Albuterol/Ipratropium (Duoneb 3.0-0.5 Mg/3 Ml) 3 ml NEB Q4HRRT PRN PRN Reason: Shortness Of Breath/wheezing Aspirin (Halfprin) 81 mg PO DAILY [facility] Labetalol HCl (Normodyne) 20 mg IVPUSH Q4H PRN; Protocol PRN Reason: Hypertension Last Admin: 11/21/19 19:35 Dose: 20 mg Lisinopril (Prinivil) 10 mg PO DAILY [facility] Last Admin: 11/21/19 17:22 Dose: 10 mg Rosuvastatin Calcium (Crestor) 40 mg PO Q48H [facility] Sucralfate (Carafate) 1 gm PO QIDACANDBED [facility] Discontinued Medications Acetaminophen (Tylenol Extra Strength) 1,000 mg PO ONETIME ONE Stop: 11/21/19 15:40 Last Admin: 11/21/19 15:43 Dose: 1,000 mg Acetaminophen (Tylenol) 650 mg PO Q4H PRN PRN Reason: Pain (Mild 1-3)/fever Alprazolam (Xanax) 0.5 mg PO NOW ONE Stop: 11/21/19 20:15 Last Admin: 11/21/19 21:34 Dose: 0.5 mg Hydralazine HCl (Apresoline) 10 mg IVPUSH ONETIME ONE Stop: 11/21/19 12:31 Last Admin: 11/21/19 12:37 Dose: 10 mg Hydrochlorothiazide (Hydrochlorothiazide) 25 mg PO DAILY [facility] Labetalol HCl (Normodyne) 20 mg IVPUSH ONETIME ONE; Protocol Stop: 11/21/19 12:31 Last Admin: 11/21/19 12:37 Dose: 20 mg Nitroglycerin (Nitrostat) 0.4 mg SL ONETIME ONE Stop: 11/21/19 15:29 Last Admin: 11/21/19 15:37 Dose: 0.4 mg Sucralfate (Carafate) 1 gm PO QID [facility] Last Admin: 11/22/19 06:10 Dose: 1 gm - Exam General: Alert, Oriented, Cooperative Lungs: Clear to Auscultation, Normal Respiratory Effort Cardiovascular: Regular Rate, Regular Rhythm GI/Abdominal Exam: Normal Bowel Sounds, Soft, Non-Tender Extremities: Normal Inspection, No Pedal Edema Skin: Warm, Dry, Intact Neurological: No New Focal Deficit Psy/Mental Status: Alert, Normal Affect, Normal Mood Sepsis Event Note - Evaluation Sepsis Screening Result: No Definite Risk - Focused Exam Vital Signs: Vital Signs Temp Pulse Resp BP Pulse Ox 11/22/19 07:00 97.7 F 90 20 169/93 H 96 11/22/19 03:40 97.6 F 87 18 164/80 H 96 11/21/19 23:55 97.6 F 96 16 142/88 H 97 Date Exam was Performed: 11/22/19 Time Exam was Performed: 09:31 - Problem List Review Problem List Initiated/Reviewed/Updated: Yes - Plan Plan:: 1. Chest pain- ACS r/o- monitored on telemetry without any concerning findings. Trops trended and negative x 3. Continue aspirin. 2. HTN emergency- BP improved but still elevated, LFTS trending down. Continue home lisinopril 10 mg, restart home HCTZ 25 mg. Continue prn labetalol. 3. Transaminitis- trending down, continue to monitor 4. Chronic conditions- emphysema, epigastric pain, and hyperlipidemia- continue home meds and duonebs. Lipid panel pending. A/P: 63 y/o F is being admitted for management of uncontrolled HTN, anxiety driven vs non-compliance? troponin 1st 2 sets neagtive, f/u on 3rd set, EKG unremarkable Cont home meds for BP control(med-rec needs to be done in AM) Labetalol 10mg IV Q4 for HTN cont ASA, statin Repeat LFTs in AM, transaminitis could be secondary to uncontrolled HTN Check lipid profile, TSH, HbA1c cont to monitor closely
[2019-11-22] MEDS ORDERED: Aspirin 81 MG Tab.EC PO SCH (09:00)
[2019-11-22] MEDS ORDERED: Sucralfate 1 GM Tab PO SCH (11:30)
[2019-11-22] MEDS ORDERED: Hydrochlorothiazide 25 MG Tab PO ONE (12:11)
--- NOTE | 2019-11-22 12:14 | PCM.DCSUM1 ---
<Avis Perez - Last Filed: 11/22/19 14:39> Discharge Summary - Hospital Course HPI Initial Comments: Admission Date:11/21/2019 Discharge Date: 11/22/2019 Admission Diagnosis: 1. Chest pain 2. Uncontrolled HTN 3. Transaminitis Discharge Diagnosis: 1. Chest Pain- resolved 2. Hypertensive emergency-resolved 3. Transaminitis-improved 4. Chronic conditions- epigastric pain and hyperlipidemia Procedures: None Consults: None Hospital Course: The patient is a 63-year-old female who presented to the ER with chest pain and found to have elevated blood pressure of 219/123. She has a past medical history of hyperlipidemia, hypertension, epigastric pain, emphysema. In the ER workup showed no anemia or white count. She had elevated AST and ALT. Initial troponin was negative. TSH was within normal limits. CXR showed no acute cardiopulmonary process. EKG showed NSR without ST changes. Received dose of hydralazine and labetalol in ER with some improvement in blood pressure. She was admitted to the medical surgical floor for observation. She was restarted on her home blood pressure meds with prn labetalol. Her BP improved to 140s/ 80s. Troponins were trended and negative x 3. She was monitored on telemetry without any significant events. Her LFTs trended down. She was continued on her home meds for chronic conditions. By day of discharge patient was feeling better and was fine going home. Disposition: Home Discharge Condition: vitals stable, tolerating oral diet, ambulating without difficulty, symptom improvement Discharge Instructions: regular diet as tolerated, activity as tolerated, take medications as prescribed. Symptoms to report to physician include fever/chills , chest pain, shortness of breath, abdominal pain, erythema, drainage/discharge , or not improving as expected. Please take blood pressure daily and keep log, discuss with PCP on follow up appt. You will need outpatient echo and stress test. Discharge Medications: Albuterol [Ventolin HFA] 1 - 2 puff INH ASDIRECTED PRN Aspirin [Adult Aspirin] 81 mg PO DAILY Lisinopril 20 mg PO DAILY Rosuvastatin Calcium 40 mg PO ASDIRECTED hydroCHLOROthiazide [Hydrochlorothiazide] 25 mg PO BEDTIME Sucralfate 1 gm PO QID Zolpidem Tartrate [Ambien] 10 mg PO BEDTIME lisinopriL [Prinivil] 20 mg PO DAILY Follow-up: PCP- Cindi Modi NP on 11/29/2019 Diagnosis: Stroke: No - Discharge Data Discharge Date: 11/22/19 Discharge Disposition: Home, Self-Care 01 Condition: Stable - Referral to Home Health Primary Care Physician: [facility] - Patient Instructions Diet: Heart Healthy Diet Activity: As Tolerated Driving: May Drive Today Showering/Bathing: May Shower Notify Provider of: Fever, Increased Pain, Swelling and Redness, Drainage, Nausea and/or Vomiting Other/Special Instructions: Additional symptoms include chest pain, shortness of breath, or abdominal pain. Please check BP at home and keep log. Please notify physician of high values >140/90 or lows <100/60. - Discharge Plan *PRESCRIPTION DRUG MONITORING PROGRAM REVIEWED*: No *COPY OF PRESCRIPTION DRUG MONITORING REPORT IN PATIENT RON: No Prescriptions/Med Rec: lisinopriL [Prinivil] 20 mg PO DAILY 30 Days #30 tablet Home Medications: Home Meds Albuterol [Ventolin HFA] 1 - 2 puff INH ASDIRECTED PRN 12/04/18 [History] Aspirin [Adult Aspirin] 81 mg PO DAILY 12/04/18 [History] Lisinopril 20 mg PO DAILY 12/04/18 [History] Rosuvastatin Calcium 40 mg PO ASDIRECTED 12/04/18 [History] hydroCHLOROthiazide [Hydrochlorothiazide] 25 mg PO BEDTIME 12/04/18 [History] Sucralfate 1 gm PO QID 30 Days #120 tablet 12/09/18 [Rx] Zolpidem Tartrate [Ambien] 10 mg PO BEDTIME 11/21/19 [History] lisinopriL [Prinivil] 20 mg PO DAILY 30 Days #30 tablet 11/22/19 [Rx] Patient Handouts: Nonspecific Chest Pain, [id number], Hypertension, Easy-to- Read, Lisinopril tablets Referrals: Cindi Modi NP [Ordering Only Provider] - 11/29/19 8:45 am - Discharge Summary/Plan Comment DC Time >30 min.: No - Patient Data Vitals - Most Recent: Last Vital Signs Temp 96.6 F 11/22/19 11:49 Pulse 90 11/22/19 11:49 Resp 16 11/22/19 11:49 BP 144/84 H 11/22/19 11:49 Pulse Ox 97 11/22/19 11:49 Orthostatic Blood Pressure [ 144/84 Standing] Orthostatic Blood Pressure [ 148/78 Sitting] Orthostatic Blood Pressure [ 158/83 Supine] Weight - Most Recent: 72.167 kg I&O - Last 24 hours: Intake & Output 11/21/19 11/22/19 11/22/19 22:59 06:59 14:59 Intake Total 500 Output Total 650 Balance -150 Lab Results - Last 24 hrs: Laboratory Results - last 24 hr 11/21/19 11/21/19 11/21/19 Range/Units 12:20 12:20 12:20 WBC 7.65 (4.0-11.0) K/uL RBC 4.60 (4.30-5.90) M/uL Hgb 16.0 (12.0-16.0) g/dL Hct 44.8 (36.0-46.0) % MCV 97.4 (80.0-98.0) fL MCH 34.8 H (27.0-32.0) pg MCHC 35.7 (31.0-37.0) g/dL RDW Std Deviation 42.4 (28.0-62.0) fl RDW Coeff of Oly 12 (11.0-15.0) % Plt Count 289 (150-400) K/uL MPV 9.60 (7.40-12.00) fL Neut % (Auto) 62.5 (48.0-80.0) % Lymph % (Auto) 24.8 (16.0-40.0) % Dyer % (Auto) 11.0 (0.0-15.0) % Eos % (Auto) 1.2 (0.0-7.0) % Baso % (Auto) 0.5 (0.0-1.5) % Neut # (Auto) 4.8 (1.4-5.7) K/uL Lymph # (Auto) 1.9 (0.6-2.4) K/uL Dyer # (Auto) 0.8 (0.0-0.8) K/uL Eos # (Auto) 0.1 (0.0-0.7) K/uL Baso # (Auto) 0.0 (0.0-0.1) K/uL Nucleated RBC % /100WBC Nucleated RBCs # K/uL Sodium 136 (136-145) mmol/L Potassium 3.5 (3.5-5.1) mmol/L Chloride 97 L (98-107) mmol/L Carbon Dioxide 30.7 (21.0-32.0) mmol/L BUN 10 (7.0-18.0) mg/dL Creatinine 0.7 (0.6-1.0) mg/dL Est Cr Clr Drug Dosing 77.01 mL/min Estimated GFR (MDRD) > 60.0 ml/min Glucose 183 H (74-106) mg/dL Hemoglobin A1c (4.5-6.2) % Calcium 9.2 (8.5-10.1) mg/dL Phosphorus (2.6-4.7) mg/dL Magnesium 1.9 (1.8-2.4) mg/dL Total Bilirubin 0.6 (0.2-1.0) mg/dL AST 112 H (15-37) IU/L ALT 114 H (14-63) IU/L Alkaline Phosphatase 94 (46-116) U/L Troponin I < 0.050 (0.000-0.056) ng/mL B-Natriuretic Peptide 5 (<100) PG/ML Total Protein 8.8 H (6.4-8.2) g/dL Albumin 4.1 (3.4-5.0) g/dL Globulin 4.7 H (2.6-4.0) g/dL Albumin/Globulin Ratio 0.9 (0.9-1.6) TSH 3rd Generation (0.36-3.74) uIU/mL 11/21/19 11/21/19 11/21/19 Range/Units 14:34 14:34 17:35 WBC (4.0-11.0) K/uL RBC (4.30-5.90) M/uL Hgb (12.0-16.0) g/dL Hct (36.0-46.0) % MCV (80.0-98.0) fL MCH (27.0-32.0) pg MCHC (31.0-37.0) g/dL RDW Std Deviation (28.0-62.0) fl RDW Coeff of Oly (11.0-15.0) % Plt Count (150-400) K/uL MPV (7.40-12.00) fL Neut % (Auto) (48.0-80.0) % Lymph % (Auto) (16.0-40.0) % Dyer % (Auto) (0.0-15.0) % Eos % (Auto) (0.0-7.0) % Baso % (Auto) (0.0-1.5) % Neut # (Auto) (1.4-5.7) K/uL Lymph # (Auto) (0.6-2.4) K/uL Dyer # (Auto) (0.0-0.8) K/uL Eos # (Auto) (0.0-0.7) K/uL Baso # (Auto) (0.0-0.1) K/uL Nucleated RBC % /100WBC Nucleated RBCs # K/uL Sodium (136-145) mmol/L Potassium (3.5-5.1) mmol/L Chloride (98-107) mmol/L Carbon Dioxide (21.0-32.0) mmol/L BUN (7.0-18.0) mg/dL Creatinine (0.6-1.0) mg/dL Est Cr Clr Drug Dosing mL/min Estimated GFR (MDRD) ml/min Glucose (74-106) mg/dL Hemoglobin A1c 6.4 H (4.5-6.2) % Calcium (8.5-10.1) mg/dL Phosphorus (2.6-4.7) mg/dL Magnesium (1.8-2.4) mg/dL Total Bilirubin (0.2-1.0) mg/dL AST (15-37) IU/L ALT (14-63) IU/L Alkaline Phosphatase (46-116) U/L Troponin I < 0.050 < 0.050 (0.000-0.056) ng/mL B-Natriuretic Peptide (<100) PG/ML Total Protein (6.4-8.2) g/dL Albumin (3.4-5.0) g/dL Globulin (2.6-4.0) g/dL Albumin/Globulin Ratio (0.9-1.6) TSH 3rd Generation (0.36-3.74) uIU/mL 11/21/19 11/22/19 11/22/19 Range/Units 17:35 05:55 05:55 WBC 8.35 (4.0-11.0) K/uL RBC 4.12 L (4.30-5.90) M/uL Hgb 13.9 (12.0-16.0) g/dL Hct 41.0 (36.0-46.0) % MCV 99.5 H (80.0-98.0) fL MCH 33.7 H (27.0-32.0) pg MCHC 33.9 (31.0-37.0) g/dL RDW Std Deviation 47.4 (28.0-62.0) fl RDW Coeff of Oly 13 (11.0-15.0) % Plt Count 249 (150-400) K/uL MPV 9.70 (7.40-12.00) fL Neut % (Auto) 65.2 (48.0-80.0) % Lymph % (Auto) 20.5 (16.0-40.0) % Dyer % (Auto) 12.1 (0.0-15.0) % Eos % (Auto) 1.6 (0.0-7.0) % Baso % (Auto) 0.6 (0.0-1.5) % Neut # (Auto) 5.5 (1.4-5.7) K/uL Lymph # (Auto) 1.7 (0.6-2.4) K/uL Dyer # (Auto) 1.0 H (0.0-0.8) K/uL Eos # (Auto) 0.1 (0.0-0.7) K/uL Baso # (Auto) 0.1 (0.0-0.1) K/uL Nucleated RBC % 0.0 /100WBC Nucleated RBCs # 0 K/uL Sodium 136 (136-145) mmol/L Potassium 3.5 (3.5-5.1) mmol/L Chloride 100 (98-107) mmol/L Carbon Dioxide 28.9 (21.0-32.0) mmol/L BUN 10 (7.0-18.0) mg/dL Creatinine 0.7 (0.6-1.0) mg/dL Est Cr Clr Drug Dosing 77.01 mL/min Estimated GFR (MDRD) > 60.0 ml/min Glucose 133 H (74-106) mg/dL Hemoglobin A1c (4.5-6.2) % Calcium 8.7 (8.5-10.1) mg/dL Phosphorus 4.6 (2.6-4.7) mg/dL Magnesium 1.8 (1.8-2.4) mg/dL Total Bilirubin 1.2 H (0.2-1.0) mg/dL AST 55 H (15-37) IU/L ALT 79 H (14-63) IU/L Alkaline Phosphatase 74 (46-116) U/L Troponin I (0.000-0.056) ng/mL B-Natriuretic Peptide (<100) PG/ML Total Protein 7.1 (6.4-8.2) g/dL Albumin 3.4 (3.4-5.0) g/dL Globulin 3.7 (2.6-4.0) g/dL Albumin/Globulin Ratio 0.9 (0.9-1.6) TSH 3rd Generation 0.86 (0.36-3.74) uIU/mL Med Orders - Current: Current Medications Albuterol/Ipratropium (Duoneb 3.0-0.5 Mg/3 Ml) 3 ml NEB Q4HRRT PRN PRN Reason: Shortness Of Breath/wheezing Aspirin (Halfprin) 81 mg PO DAILY [facility] Last Admin: 11/22/19 08:43 Dose: 81 mg Hydrochlorothiazide (Hydrochlorothiazide) 25 mg PO ONETIME ONE Stop: 11/22/19 12:12 Labetalol HCl (Normodyne) 20 mg IVPUSH Q4H PRN; Protocol PRN Reason: Hypertension Last Admin: 11/21/19 19:35 Dose: 20 mg Lisinopril (Prinivil) 10 mg PO DAILY [facility] Last Admin: 11/22/19 08:41 Dose: 10 mg Rosuvastatin Calcium (Crestor) 40 mg PO Q48H [facility] Sucralfate (Carafate) 1 gm PO QIDACANDBED [facility] Last Admin: 11/22/19 11:40 Dose: 1 gm Discontinued Medications Acetaminophen (Tylenol Extra Strength) 1,000 mg PO ONETIME ONE Stop: 11/21/19 15:40 Last Admin: 11/21/19 15:43 Dose: 1,000 mg Acetaminophen (Tylenol) 650 mg PO Q4H PRN PRN Reason: Pain (Mild 1-3)/fever Alprazolam (Xanax) 0.5 mg PO NOW ONE Stop: 11/21/19 20:15 Last Admin: 11/21/19 21:34 Dose: 0.5 mg Hydralazine HCl (Apresoline) 10 mg IVPUSH ONETIME ONE Stop: 11/21/19 12:31 Last Admin: 11/21/19 12:37 Dose: 10 mg Hydrochlorothiazide (Hydrochlorothiazide) 25 mg PO DAILY [facility] Labetalol HCl (Normodyne) 20 mg IVPUSH ONETIME ONE; Protocol Stop: 11/21/19 12:31 Last Admin: 11/21/19 12:37 Dose: 20 mg Nitroglycerin (Nitrostat) 0.4 mg SL ONETIME ONE Stop: 11/21/19 15:29 Last Admin: 11/21/19 15:37 Dose: 0.4 mg Sucralfate (Carafate) 1 gm PO QID [facility] Last Admin: 11/22/19 06:10 Dose: 1 gm <Shahbaz Mays - Last Filed: 11/22/19 20:56> Discharge Summary - Hospital Course HPI Initial Comments: I have seen and evaluated the patient and agree with the residents note unless specified in my note - Referral to Home Health Primary Care Physician: [facility] - Discharge Diagnosis/Problem(s) (1) Hypertensive urgency SNOMED Code(s): 522919588 ICD Code: I16.0 - HYPERTENSIVE URGENCY Status: Acute (2) HLD (hyperlipidemia) SNOMED Code(s): 54935988 ICD Code: E78.5 - HYPERLIPIDEMIA, UNSPECIFIED Status: Acute (3) Family history of heart disease SNOMED Code(s): 411037486 ICD Code: Z82.49 - FAMILY HX OF ISCHEM HEART DIS AND OTH DIS OF THE CIRC SYS Status: Acute - Patient Data Vitals - Most Recent: Last Vital Signs Temp 35.9 C 11/22/19 11:49 Pulse 90 11/22/19 11:49 Resp 16 11/22/19 11:49 BP 168/83 H 11/22/19 14:30 Pulse Ox 97 11/22/19 11:49 Orthostatic Blood Pressure [ 144/84 Standing] Orthostatic Blood Pressure [ 148/78 Sitting] Orthostatic Blood Pressure [ 158/83 Supine] I&O - Last 24 hours: Intake & Output 11/22/19 11/22/19 11/22/19 06:59 14:59 22:59 Intake Total 500 2000 Output Total 650 1000 Balance -150 1000 Lab Results - Last 24 hrs: Laboratory Results - last 24 hr 11/22/19 11/22/19 Range/Units 05:55 05:55 WBC 8.35 (4.0-11.0) K/uL RBC 4.12 L (4.30-5.90) M/uL Hgb 13.9 (12.0-16.0) g/dL Hct 41.0 (36.0-46.0) % MCV 99.5 H (80.0-98.0) fL MCH 33.7 H (27.0-32.0) pg MCHC 33.9 (31.0-37.0) g/dL RDW Std Deviation 47.4 (28.0-62.0) fl RDW Coeff of Oly 13 (11.0-15.0) % Plt Count 249 (150-400) K/uL MPV 9.70 (7.40-12.00) fL Neut % (Auto) 65.2 (48.0-80.0) % Lymph % (Auto) 20.5 (16.0-40.0) % Dyer % (Auto) 12.1 (0.0-15.0) % Eos % (Auto) 1.6 (0.0-7.0) % Baso % (Auto) 0.6 (0.0-1.5) % Neut # (Auto) 5.5 (1.4-5.7) K/uL Lymph # (Auto) 1.7 (0.6-2.4) K/uL Dyer # (Auto) 1.0 H (0.0-0.8) K/uL Eos # (Auto) 0.1 (0.0-0.7) K/uL Baso # (Auto) 0.1 (0.0-0.1) K/uL Nucleated RBC % 0.0 /100WBC Nucleated RBCs # 0 K/uL Sodium 136 (136-145) mmol/L Potassium 3.5 (3.5-5.1) mmol/L Chloride 100 (98-107) mmol/L Carbon Dioxide 28.9 (21.0-32.0) mmol/L BUN 10 (7.0-18.0) mg/dL Creatinine 0.7 (0.6-1.0) mg/dL Est Cr Clr Drug Dosing 77.01 mL/min Estimated GFR (MDRD) > 60.0 ml/min Glucose 133 H (74-106) mg/dL Calcium 8.7 (8.5-10.1) mg/dL Phosphorus 4.6 (2.6-4.7) mg/dL Magnesium 1.8 (1.8-2.4) mg/dL Total Bilirubin 1.2 H (0.2-1.0) mg/dL AST 55 H (15-37) IU/L ALT 79 H (14-63) IU/L Alkaline Phosphatase 74 (46-116) U/L Total Protein 7.1 (6.4-8.2) g/dL Albumin 3.4 (3.4-5.0) g/dL Globulin 3.7 (2.6-4.0) g/dL Albumin/Globulin Ratio 0.9 (0.9-1.6) Med Orders - Current: Current Medications Discontinued Medications Acetaminophen (Tylenol Extra Strength) 1,000 mg PO ONETIME ONE Stop: 11/21/19 15:40 Last Admin: 11/21/19 15:43 Dose: 1,000 mg Acetaminophen (Tylenol) 650 mg PO Q4H PRN PRN Reason: Pain (Mild 1-3)/fever Albuterol/Ipratropium (Duoneb 3.0-0.5 Mg/3 Ml) 3 ml NEB Q4HRRT PRN PRN Reason: Shortness Of Breath/wheezing Alprazolam (Xanax) 0.5 mg PO NOW ONE Stop: 11/21/19 20:15 Last Admin: 11/21/19 21:34 Dose: 0.5 mg Aspirin (Halfprin) 81 mg PO DAILY [facility] Last Admin: 11/22/19 08:43 Dose: 81 mg Hydralazine HCl (Apresoline) 10 mg IVPUSH ONETIME ONE Stop: 11/21/19 12:31 Last Admin: 11/21/19 12:37 Dose: 10 mg Hydrochlorothiazide (Hydrochlorothiazide) 25 mg PO DAILY [facility] Hydrochlorothiazide (Hydrochlorothiazide) 25 mg PO ONETIME ONE Stop: 11/22/19 12:12 Last Admin: 11/22/19 12:49 Dose: 25 mg Labetalol HCl (Normodyne) 20 mg IVPUSH ONETIME ONE; Protocol Stop: 11/21/19 12:31 Last Admin: 11/21/19 12:37 Dose: 20 mg Labetalol HCl (Normodyne) 20 mg IVPUSH Q4H PRN; Protocol PRN Reason: Hypertension Last Admin: 11/21/19 19:35 Dose: 20 mg Lisinopril (Prinivil) 10 mg PO DAILY [facility] Last Admin: 11/22/19 08:41 Dose: 10 mg Nitroglycerin (Nitrostat) 0.4 mg SL ONETIME ONE Stop: 11/21/19 15:29 Last Admin: 11/21/19 15:37 Dose: 0.4 mg Rosuvastatin Calcium (Crestor) 40 mg PO Q48H [facility] Sucralfate (Carafate) 1 gm PO QID [facility] Last Admin: 11/22/19 06:10 Dose: 1 gm Sucralfate (Carafate) 1 gm PO QIDACANDBED [facility] Last Admin: 11/22/19 11:40 Dose: 1 gm
[2019-11-22] MEDS ORDERED: Rosuvastatin 10 MG Tab PO SCH (21:00)
== END 2019-11-22 14:40 | disposition home or self-care (01) ==
LOC: MW.ED 12:13 → MW.MS 15:40
PROVIDERS: ADMIT Student in an Organized Health Care Education/Training Program; ATTEND Student in an Organized Health Care Education/Training Program
DX: I16.1 Hypertensive emergency (principal); I10 Essential (primary) hypertension; R74.0 Nonspecific elevation of levels of transaminase and lactic acid dehydrogenase [LDH]; R10.13 Epigastric pain; E78.5 Hyperlipidemia, unspecified; J43.9 Emphysema, unspecified; E78.00 Pure hypercholesterolemia, unspecified; Z82.49 Family history of ischemic heart disease and other diseases of the circulatory system; Z79.82 Long term (current) use of aspirin; Z79.899 Other long term (current) drug therapy; Z91.048 Other nonmedicinal substance allergy status
CPT/HCPCS: 36415; 71045; 80053; 83036; 83735; 83880; 84100; 84443; 84484; 85025; 93005; A9270; J0360; J3490; 96374; 96375; 96376; 99285; 99285-25; G0378

== ENCOUNTER 2022-02-09 20:48 | Emergency (ER) | payer MEDICARE, BC ==
[2022-02-09] MEDS ORDERED: Sodium Chloride 0.9% 10 ML Syringe FLUSH PRN (20:51)
[2022-02-09] MEDS ORDERED: Sodium Chloride 0.9% 2.5 ML Syringe FLUSH PRN (20:51)
[2022-02-09] MEDS ORDERED: Ondansetron 4 MG/2 ML SDV IVPUSH ONE (22:25)
[2022-02-09] MEDS ORDERED: Sodium Chloride 0.9% 1,000 ML IV ONE (22:25)
[2022-02-09] MEDS ORDERED: Ketorolac 30 MG/ML SDV IVPUSH ONE (22:25)
[2022-02-09 23:21] LABS: BLOOD UREA NITROGEN,BUN 10 mg/dL (7.0-18.0); CHLORIDE,CL 98 mmol/L (98-107); GLUCOSE RANDOM 148 mg/dL (74-106); POTASSIUM,K 3.3 mmol/L (3.5-5.1); SODIUM,NA 134 mmol/L (136-145)
[2022-02-10] MEDS ORDERED: metroNIDAZOLE 250 MG Tab PO ONE (00:05)
[2022-02-10] MEDS ORDERED: fentaNYL 50 MCG/ML SDV IVPUSH ONE (00:05)
[2022-02-10] MEDS ORDERED: Ciprofloxacin 500 MG Tab PO ONE (00:05)
== END 2022-02-10 00:24 | disposition home or self-care (01) ==
LOC: MW.ED 20:48
DX: K52.9 Noninfective gastroenteritis and colitis, unspecified (principal); I10 Essential (primary) hypertension; E78.00 Pure hypercholesterolemia, unspecified; Z79.899 Other long term (current) drug therapy; Z88.8 Allergy status to other drugs, medicaments and biological substances; Z79.82 Long term (current) use of aspirin
CPT/HCPCS: 36415; 74176; 80053; 81003; 83690; 85025; 96374; 96375; 99284; A9270; J1885; J2405; J3010; J7030; J3490

== ENCOUNTER 2022-02-11 09:16 | Emergency (ER) | payer BC, MEDICARE ==
[2022-02-11] MEDS ORDERED: HYDROmorphone 1 MG/ML Syringe IVPUSH ONE (09:42)
[2022-02-11] MEDS ORDERED: Sodium Chloride 0.9% 1,000 ML IV STA (09:42)
[2022-02-11] MEDS ORDERED: Metoclopramide 10 MG/2 ML SDV IVPUSH STA (09:44)
[2022-02-11 10:23] LABS: BLOOD UREA NITROGEN,BUN 9 mg/dL (7.0-18.0); CARBON DIOXIDE,CO2 26.6 mmol/L (21.0-32.0); CHLORIDE,CL 91 mmol/L (98-107); GLUCOSE RANDOM 162 mg/dL (74-106); LIPASE 50 U/L (73-393); POTASSIUM,K 3.5 mmol/L (3.5-5.1); SODIUM,NA 127 mmol/L (136-145)
[2022-02-11] MEDS ORDERED: Iopamidol 755 MG/ML 500 ML Multipack Bottle IVPUSH STA (12:58)
== END 2022-02-11 14:38 | disposition home or self-care (01) ==
LOC: MW.ED 09:16
DX: K52.9 Noninfective gastroenteritis and colitis, unspecified (principal); E78.00 Pure hypercholesterolemia, unspecified; I10 Essential (primary) hypertension; Z91.048 Other nonmedicinal substance allergy status; Z90.710 Acquired absence of both cervix and uterus; Z79.82 Long term (current) use of aspirin; Z79.899 Other long term (current) drug therapy
CPT/HCPCS: 36415; 71045; 71275; 74177; 76705; 80053; 81003; 83690; 85025; 85379; 96374; 96375; 99284; J1170; J2765; J7030; Q9967; 99285

== ENCOUNTER 2022-02-26 16:48 | Emergency (ER) | payer BC, MEDICARE ==
[2022-02-26] MEDS ORDERED: Iopamidol 755 MG/ML 500 ML Multipack Bottle IVPUSH STA (18:32)
== END 2022-02-26 19:34 | disposition home or self-care (01) ==
LOC: MW.ED 16:48
DX: R07.81 Pleurodynia (principal); E78.00 Pure hypercholesterolemia, unspecified; I10 Essential (primary) hypertension; Z88.8 Allergy status to other drugs, medicaments and biological substances; Z79.82 Long term (current) use of aspirin; Z79.899 Other long term (current) drug therapy; Z20.822 Contact with and (suspected) exposure to COVID-19
CPT/HCPCS: 36415; 71275; 83880; 84484; 87635; 93005; 99284; Q9967; U0002

== ENCOUNTER 2022-07-12 18:43 | Emergency (ER) | payer BC, MEDICARE | END 2022-07-12 19:55 | disposition home or self-care (01) | LOC: MW.ED 18:43 | DX: U07.1 COVID-19 (principal); I10 Essential (primary) hypertension; E78.00 Pure hypercholesterolemia, unspecified; Z88.8 Allergy status to other drugs, medicaments and biological substances | CPT/HCPCS: 99283 ==